=== PATIENT | male | born 1960 | race Caucasian/White ===

== ENCOUNTER 2019-08-28 02:50 | Emergency (ER) | payer BC, SELFPAY ==
--- NOTE | ~2019-08-28 | XR_ITS ---
EXAMINATION: XR chest 2V EXAM DATE: 08/28/2019 03:42 INDICATION: Epigastric pain, heartburn. TECHNIQUE: Frontal and lateral projections of the chest obtained and reviewed. There is no prior mirta dy for comparison. FINDINGS: The lungs are clear. There are no pleural effusions. The cardiomediastinal silhouette is within normal limits. There is no pneumothorax suspected. Right upper quadrant around calcific dens ity, could be cholelithiasis or granuloma. IMPRESSION: No acute cardiopulmonary findings. Reviewed, dictated and finalized at location A.
[2019-08-28 03:02] VITALS: BP 147/86; PULSE 95; RESP 15; TEMP 36.4; O2SAT 96
--- NOTE | 2019-08-28 03:02 | ECG_ITS ---
Measurements Intervals Matthews Rate: 92 P: 47 AR: 140 QRS: -7 QRSD: 83 T: 55 QT: 328 QTc: 407 Interpretive Statements SINUS RHYTHM RSR' IN V1 OR V2, PROBABLY NORMAL VARIANT INFERIOR INFARCT, AGE INDETERMINATE ABNORMAL ECG Electronically Signed On 08-28-2019 7:07:43 CDT by Stan Irvin D.O.
[2019-08-28] MEDS: ASPIRIN 81 MG CHEWABLE TABLET 324 MG PO (03:09)
[2019-08-28 03:40] LABS: Basophils Percent Auto 0.2 % (0.2-1.2); Eosinophils Absolute Auto 0.1 K/mm3 (0-0.3); Eosinophils Percent Auto 0.5 % (0-4.4); Hematocrit 46.1 % (42.0-52.0); Hemoglobin 15.6 g/dL (14.0-18.0); Immature Granulocyte Absolute 0.03 K/mm3 (0.00-0.031); Immature Granulocyte Percent A 0.3 % (0-0.5); Lymphocytes Absolute Auto 0.42 K/mm3 (0.9-3.2); Lymphocytes Percent Auto 4.3 % (18.3-44.2); Mean Corpuscular HGB Conc 33.8 g/dl (32-36); Mean Corpuscular Hemoglobin 28.9 pg (26-34); Mean Corpuscular Volume 85.5 fl (80-100); Mean Platelet Volume 8.9 fl (7.4-10.4); Monocytes Absolute Auto 0.5 K/mm3 (0.1-0.6); Monocytes Percent Auto 4.7 % (2.6-8.5); Neutrophils Absolute Auto 8.7 K/mm3 (1.3-6.7); Platelet Count Result 279 k/mm3 (150-375); Red Blood Count 5.39 M/mm3 (4.6-6.20); Red Cell Distribution Width 12.6 % (11.5-14.5); White Blood Count 9.7 K/mm3 (4.5-10.0)
[2019-08-28 03:50] LABS: Prothrombin Time 12.9 Seconds (11.1-14.7)
[2019-08-28 03:51] LABS: Partial Thromboplastin Time 29.1 SECONDS (22.3-36.8)
[2019-08-28 03:58] VITALS: BP 135/92; PULSE 93; RESP 18; O2SAT 99
[2019-08-28 04:08] LABS: Blood Urea Nitrogen 22 mg/dL (9-20); Calcium 9.4 mg/dL (8.4-10.2); Carbon Dioxide 28 mmol/L (22-30); Chloride 104 mmol/L (98-107); Estimated Glomerular Filt Rate > 60; Glucose 146 mg/dL (75-110); Potassium 3.7 mmol/L (3.4-5.0); Sodium 138 mmol/L (137-145)
[2019-08-28 04:20] LABS: Troponin I < 0.012 ng/mL (0.000-0.034)
[2019-08-28 04:36] VITALS: BP 133/94; PULSE 88; RESP 20; O2SAT 96
--- NOTE | 2019-08-28 04:56 | ED.GENADULT ---
HPI - General Adult General Chief complaint: Chest Pain Stated complaint: really bad heartburn Time Seen by Provider: 08/28/19 03:06 History of Present Illness HPI narrative: Patient is a 58-year-old male who presents the ER with epigastric/chest pain since 8p. It is burning that goes from the abdomen up into the back of the throat. Worse with laying down. Has been occurring over the last 2 days. No relief with Tums. Does note days had some dark black stools. No lightheadedness/nausea/vomiting/dizziness. Does not go see a PCP. No history of [place] or other cardiac issues. Has not had colonoscopy or EGD. Related Data Allergies Allergy/AdvReac Type Severity Reaction Status Date / Time No Known Allergies Allergy Unverified 12/26/15 11:32 Review of Systems Review of Systems: All systems reviewed & are unremarkable except as noted in HPI and below Cardiovascular: Cardiovascular: Reports chest pain and Denies radiating jaw, neck or arm pain Respiratory: Respiratory: Denies chest congestion, Denies cough and Denies dyspnea Gastrointestinal: Gastrointestinal: Reports abdominal pain, Reports melena, Denies bloating, Reports heartburn, Denies diarrhea and Denies nausea PMFSH Past Medical History Medical History (Updated 08/28/19 @ 05:03 by Raul Mukherjee MD) No pertinent past medical history Surgical History Surgical History (Updated 08/28/19 @ 04:59 by Raul Mukherjee MD) No significant past surgical history Family History Family History (Updated 09/17/16 @ 23:56 by DOCTOR UNKNOWN) Mother Patient's mother is in good health Father Family history of lung cancer, Onset Age: 65 Patient's father is Social History Social History Smoking status: Never smoker Second hand tobacco smoke exposure: Yes Alcohol intake: never Exam Narrative: Exam Narrative: GENERAL: Well-appearing, well-nourished, and in no acute distress. HEAD: Normocephalic, atraumatic. ENT: Mucous membranes moist. CHEST: Clear to auscultation. No respiratory distress. HEART: Regular rate and rhythm. No murmur heard. Normal peripheral pulses. ABDOMEN: Soft, nontender, nondistended, nonbleeding nonthrombosed external hemorrhoids. Heme-negative stool on guaiac. EXTREMITIES: Normal range of motion. No edema. SKIN: Warm, dry, no rash. NEURO: Alert and oriented x3. Course Course Emergency Course: Patient informed of results. Symptoms significantly improved with GI cocktail. Troponin negative. Unremarkable EKG. Recommend follow-up with primary care and we will start him on a PPI. Vital Signs Vital signs: Vital Signs Temperature 97.6 F 08/28/19 03:02 Pulse Rate 95 08/28/19 03:02 Respiratory Rate 15 08/28/19 03:02 Blood Pressure 147/86 H 08/28/19 03:02 Pulse Oximetry 96 08/28/19 03:02 Temperature 97.6 F 08/28/19 03:02 Pulse Rate 88 08/28/19 04:36 Respiratory Rate 20 08/28/19 04:36 Blood Pressure 133/94 H 08/28/19 04:36 Pulse Oximetry 96 08/28/19 04:36 Medical Decision Making Vital Signs Vital Signs: Vital Signs Temperature 97.6 F 08/28/19 03:02 Pulse Rate 95 08/28/19 03:02 Respiratory Rate 15 08/28/19 03:02 Blood Pressure 147/86 H 08/28/19 03:02 Pulse Oximetry 96 08/28/19 03:02 Temperature 97.6 F 08/28/19 03:02 Pulse Rate 88 08/28/19 04:36 Respiratory Rate 20 08/28/19 04:36 Blood Pressure 133/94 H 08/28/19 04:36 Pulse Oximetry 96 08/28/19 04:36 Lab Data Result diagrams: 08/28/19 03:31 08/28/19 03:31 Labs: Lab Results 08/28/19 08/28/19 08/28/19 Range/Units 03:31 03:31 03:31 WBC 9.7 (4.5-10.0) K/mm3 RBC 5.39 (4.6-6.20) M/mm3 Hgb 15.6 (14.0-18.0) g/dL Hct 46.1 (42.0-52.0) % MCV 85.5 (80-100) fl MCH 28.9 (26-34) pg MCHC 33.8 (32-36) g/dl RDW 12.6 (11.5-14.5) % Plt Count 279 (150-375) k/mm3 MPV 8.9 (7.4-10.4) fl Immature Gran % (Auto)
[2019-08-28 05:13] VITALS: BP 131/82; PULSE 83; RESP 24; O2SAT 93
== END 2019-08-28 05:15 | disposition home or self-care (01) ==
PROVIDERS: Emergency Provider Emergency Medicine
DX: K21.9 Gastro-esophageal reflux disease without esophagitis (principal); R94.31 Abnormal electrocardiogram [ECG] [EKG]
CPT/HCPCS: 36415; 71046; 80048; 84484; 85025; 85610; 85730; 93005; 99284; A9270

== ENCOUNTER 2022-11-07 11:01 | Emergency (ER) | payer BC, SELFPAY ==
[2022-11-07 11:06] VITALS: BP 143/77; PULSE 67; RESP 16; TEMP 36.1; O2SAT 99
--- NOTE | 2022-11-07 11:36 | ED.URI ---
HPI - URI/Sore Throat General Chief Complaint: Upper Respiratory Infection Stated Complaint: Cold Symptoms Source: patient and RN notes reviewed History of Present Illness HPI Narrative: 62-year-old male presents urgent care with complaints of congestion and runny nose x2 days. Patient denies any fevers, chills, ear pain, sore throat, chest pain, shortness of breath, vomiting or diarrhea. Patient states he has used Mucinex with no relief. Some parts of this dictation were generated by voice recognition software and may contain typographical and/or grammatical inaccuracies. Related Data Allergies Allergy/AdvReac Type Severity Reaction Status Date / Time No Known Allergies Allergy Unverified 11/07/22 11:12 Review of Systems Review of Systems: Pertinent positives and pertinent negatives per HPI. [facility] Past Medical History Medical History (Updated 11/07/22 @ 11:36 by Kayla Barnard, JOIE) Arthritis No pertinent past medical history Surgical History Surgical History No significant past surgical history Family History Family History Mother Diabetes mellitus Father Family history of lung cancer, Onset Age: 65 Patient's father is Hypertension Social History Social History (Updated 11/28/20 @ 08:30 by Yoana Angeles [facility]) Smoking status: Never smoker Second hand tobacco smoke exposure: Yes Alcohol intake: current Alcohol use details: maybe once a month. Comments At the time of my signature, I reviewed and agree with the nursing past medical, surgical, social, and family history. There is no relevant family history pertinent to the patient complaint. Exam Narrative: GENERAL: This is a well-nourished, well-developed patient, in no apparent distress. HEAD: normocephalic, atraumatic. EYES: Sclera clear/white. Vision is grossly intact. EARS: External ears normal, auditory canals clear and without drainage, TMs normal without perforation. Hearing grossly intact. NOSE: External nose normal with no obvious nasal discharge, nares without redness, no rhinorrhea. THROAT: Mucous membranes moist, posterior pharynx clear. NECK: Neck supple, non-tender without lymphadenopathy, masses or thyromegaly. CARDIOVASCULAR: Regular rate and rhythm without murmurs, gallops, or rubs. RESPIRATORY: Clear to auscultation. Breath sounds equal bilaterally. No wheezes, rales, or rhonchi. SKIN: warm, intact with no suspicious lesions or rash, good texture and turgor. NEURO: awake, alert, and oriented to person, place and time. There were no obvious focal neurologic abnormalities. Course Course Level of Care: Express Care Visit Vital Signs Vital signs: Vital Signs Temperature 97 F L 11/07/22 11:06 Pulse Rate 67 11/07/22 11:06 Respiratory Rate 16 11/07/22 11:06 Blood Pressure 143/77 H 11/07/22 11:06 Pulse Oximetry 99 11/07/22 11:06 Oxygen Delivery Room Air 11/07/22 11:06 Temperature 97 F L 11/07/22 11:06 Pulse Rate 67 11/07/22 11:06 Respiratory Rate 16 11/07/22 11:06 Blood Pressure 143/77 H 11/07/22 11:06 Pulse Oximetry 99 11/07/22 11:06 Oxygen Delivery Room Air 11/07/22 11:06 reviewed MDM - URI/Sore Throat MDM Narrative Medical decision making narrative: Viral illness may last between 7-12days; antibiotic is NOT recommended at this time. Recommend antihistamine such as Benadryl at night time and Claritin/Zyrtec/Marcela during the day. Increase your Vitamin C intake. Also, recommend symptomatic treatment includes: rest, fluids, increase humidity of the air at home with a humidifier in the bedroom. Recommend Acetaminophen or nonsteroidal anti-inflammatory agents(NSAIDs) as directed in the bottle to reduce fever and/pain/headache. Avoid smoking/second-hand smoke. Frequent hand washing or hand wood molder is one of the best ways to prevent s
== END 2022-11-07 11:40 | disposition home or self-care (01) ==
PROVIDERS: Emergency Provider Nurse Practitioner Family
DX: J06.9 Acute upper respiratory infection, unspecified (principal); M19.90 Unspecified osteoarthritis, unspecified site
CPT/HCPCS: 99213; G0463